=== PATIENT | male | born 1950 | race Caucasian/White ===

== ENCOUNTER 2019-06-13 05:25 | Day surgery (SDC) | payer OTHER ==
[~2019-06-13 05:25] MED LIST: AVAPRO300 MG PO; CELEBREX200MG PO; CRESTOR10 MG PO; ESTAZOLAM2 MG PO; LEVO-T200 MCG PO; LOTREL 10-20 M1 EACH PO; LYRICA50 MG PO; MYSOLINE250 MG PO; TAMS0.4C PO
[2019-06-13] MEDS ORDERED: PERCOCET 5-3251 EACH PO (08:47)
[2019-06-13] MEDS ORDERED: COLACE100 MG PO (08:47)
== END 2019-06-13 14:10 | disposition home or self-care (01) ==
LOC: CIR.AMB 05:25
DX: K60.3 Anal fistula (principal)